=== PATIENT | male | born 1985 | race African-American/Black ===

== ENCOUNTER 2017-11-02 08:52 | Emergency (ER) | payer MEDICAID ==
[~2017-11-02] VITALS: Ht 188 cm; Wt 81.6 kg
[2017-11-02 09:38] VITALS: BP 104/55
[2017-11-02] MEDS ORDERED: KETOROLAC TROMETH 60MG/2ML VIAL IM ONE (10:00)
== END 2017-11-02 10:49 | disposition home or self-care (01) ==
LOC: ER 08:52
DX: M54.41 Lumbago with sciatica, right side (principal); F17.210 Nicotine dependence, cigarettes, uncomplicated
CPT/HCPCS: 96372; 99283; J1885

== ENCOUNTER 2017-11-19 21:48 | Emergency (ER) | payer MEDICAID ==
[~2017-11-19] VITALS: Ht 188 cm; Wt 79.4 kg
[2017-11-19 22:00] VITALS: BP 144/60
== END 2017-11-20 | disposition home or self-care (01) ==
LOC: ER 21:48
DX: M54.32 Sciatica, left side (principal); F17.210 Nicotine dependence, cigarettes, uncomplicated; Z76.0 Encounter for issue of repeat prescription